=== PATIENT | female | born 1960 | race Caucasian/White ===

== ENCOUNTER 2017-09-14 08:38 | Inpatient (IN) | payer OTHER, SELFPAY ==
[~2017-09-14] VITALS: Ht 167.6 cm; Wt 111.9 kg
[2017-09-14] MEDS ORDERED: LISI-170 PO (09:11)
[2017-09-14] MEDS ORDERED: FLUO20CA8 PO (09:11)
[2017-09-14] MEDS ORDERED: METF500T4 PO (09:11)
[2017-09-14] MEDS ORDERED: CANA300T PO (09:11)
[2017-09-14] MEDS ORDERED: OMEP-110 PO (09:11)
[2017-09-14] MEDS ORDERED: ATOR40TA78 PO (09:11)
[2017-09-14] MEDS ORDERED: ASPI-515 PO (09:30)
[2017-09-14] MEDS ORDERED: MULT-257 PO (09:30)
[2017-09-14] MEDS ORDERED: DULA0.75 SQ (09:30)
[2017-09-14] MEDS ORDERED: CALC-112 PO (09:30)
[2017-09-14] MEDS ORDERED: SODIUM CHLORIDE FLUSH 10ML SYR IVF ONE (10:00)
[2017-09-14 10:09] LABS: BASOPHILS # (AUTO) 0.03 x10^3/uL (0-0.1); BASOPHILS % (AUTO) 0 % (0-1); EOSINOPHILS # (AUTO) 0.07 x10^3/uL (0-0.4); EOSINOPHILS % (AUTO) 1 % (1-7); LYMPHOCYTES # (AUTO) 1.57 x10^3/uL (1-3.4); LYMPHOCYTES % (AUTO) 17 % (22-44); MD NO; MEAN CORPUSCULAR HEMOGLOBIN 29.5 pg (27.0-34.8); MEAN CORPUSCULAR VOLUME 86.6 fL (80-100); MEAN PLATELET VOLUME 9.9 fL (7.4-10.4); MONOCYTES # (AUTO) 0.56 x10^3/uL (0.2-0.8); MONOCYTES % (AUTO) 6 % (2-9); NEUTROPHILS # (AUTO) 6.99 x10^3/uL (1.8-6.8); NEUTROPHILS % (AUTO) 76 % (42-75); PLATELET COUNT 230 x10^3/uL (130-400); RED BLOOD COUNT 5.48 x10^6/uL (3.82-5.3); RED CELL DISTRIBUTION WIDTH 13.5 % (9.6-15.2)
[2017-09-14 10:10] LABS: MICROSCOPIC NOT IND
[2017-09-14 10:17] LABS: ALANINE AMINOTRANSFERASE 41 U/L (12-78); ANION GAP 19 mmol/L (5-15); CHLORIDE 97 mmol/L (98-107); CREATININE 1.24 mg/dL (0.55-1.02)
[2017-09-14 10:18] LABS: CULTURE INDICATED? NO
[2017-09-14 10:21] LABS: ALKALINE PHOSPHATASE 75 U/L (45-117); BILIRUBIN,TOTAL 0.8 mg/dL (0.2-1.0); TOTAL PROTEIN 8.3 g/dL (6.4-8.2); TROPONIN I < 0.015 ng/mL (0.000-0.045)
[2017-09-14] MEDS ORDERED: HYDROCORTISONE 100 MG INJ. IV ONE (11:30)
[2017-09-14] MEDS ORDERED: SODIUM CHLORIDE 0.9% 1,000ML IVBOLUS ONE (11:30)
[2017-09-14 12:57] VITALS: BP 137/81
[2017-09-14] MEDS: SODIUM CHLORIDE 0.9% 1,000 ML IV SCH ×2 (13:29→22:33)
[2017-09-14] MEDS ORDERED: DOCUSATE 100 MG CAPSULE PO PRN (13:30)
[2017-09-14] MEDS ORDERED: ONDANSETRON 2MG/ML, 2ML IVPush PRN (13:30)
[2017-09-14] MEDS ORDERED: ACETAMINOPHEN 325 MG TABLET PO PRN (13:30)
[2017-09-14] MEDS ORDERED: BISACODYL 10 MG SUPP PR PRN (13:30)
[2017-09-14] MEDS ORDERED: ONDANSETRON ODT 4 MG PO PRN (13:30)
[2017-09-14] MEDS ORDERED: LABETALOL 5MG/ML, 20ML IVPush PRN (13:30)
[2017-09-14 13:32] VITALS: BP 110/72
[2017-09-14 14:07] LABS: HEMOGLOBIN A1C 11.9 % (4.2-6.3)
[2017-09-14] MEDS: HEPARIN 5,000 UNITS/ML, 1ML SQ SCH ×2 (16:22→22:33)
[2017-09-14] MEDS: INSULIN LISPRO 100 UNITS/ML, PEN SQ-INSULIN SCH ×2 (17:09→20:11)
[2017-09-14 19:54] VITALS: BP 118/74
[2017-09-14] MEDS: ATORVASTATIN 40 MG TABLET PO SCH (19:58)
[2017-09-14] MEDS: FLUOXETINE HCL 20 MG CAPSULE PO SCH (19:58)
[2017-09-15 02:44] VITALS: BP 117/75
[2017-09-15 05:22] LABS: BASOPHILS # (AUTO) 0.03 x10^3/uL (0-0.1); BASOPHILS % (AUTO) 1 % (0-1); EOSINOPHILS # (AUTO) 0.13 x10^3/uL (0-0.4); EOSINOPHILS % (AUTO) 2 % (1-7); LYMPHOCYTES % (AUTO) 35 % (22-44); MD NO; MEAN CORPUSCULAR HEMOGLOBIN 29.4 pg (27.0-34.8); MEAN CORPUSCULAR HGB CONC 34.1 g/dL (32.4-35.8); MEAN CORPUSCULAR VOLUME 86.3 fL (80-100); MEAN PLATELET VOLUME 9.3 fL (7.4-10.4); MONOCYTES # (AUTO) 0.52 x10^3/uL (0.2-0.8); MONOCYTES % (AUTO) 9 % (2-9); NEUTROPHILS # (AUTO) 3.01 x10^3/uL (1.8-6.8); NEUTROPHILS % (AUTO) 53 % (42-75); PLATELET COUNT 204 x10^3/uL (130-400); RED CELL DISTRIBUTION WIDTH 13.6 % (9.6-15.2)
[2017-09-15] MEDS: HEPARIN 5,000 UNITS/ML, 1ML SQ SCH ×3 (05:37→22:30)
[2017-09-15] MEDS: SODIUM CHLORIDE 0.9% 1,000 ML IV SCH ×2 (05:37→12:17)
[2017-09-15 05:39] LABS: ANION GAP 15 mmol/L (5-15); CALCIUM 8.1 mg/dL (8.5-10.1); CHLORIDE 105 mmol/L (98-107)
[2017-09-15 05:53] LABS: CREATININE 1.14 mg/dL (0.55-1.02); FREE T4 (FREE THYROXINE) 1.34 ng/dL (0.76-1.46)
[2017-09-15 07:46] VITALS: BP 120/75
[2017-09-15] MEDS: ASPIRIN 81 MG TABLET EC PO SCH (07:51)
[2017-09-15] MEDS: INSULIN LISPRO 100 UNITS/ML, PEN SQ-INSULIN SCH ×4 (07:51→20:36)
[2017-09-15] MEDS: LISINOPRIL 20 MG TABLET PO SCH (07:52)
[2017-09-15] MEDS: OMEPRAZOLE 20 MG CAPSULE.DR PO SCH (07:52)
[2017-09-15] MEDS: SENNA/DOCUSATE TABLET PO SCH (07:52)
[2017-09-15] MEDS: CALCIUM/VITAMIN D3 250-125 TABLET PO SCH (07:52)
[2017-09-15] MEDS: MULTIVITAMIN 1 TABLET PO SCH (07:52)
[2017-09-15 14:01] VITALS: BP 138/82
[2017-09-15] MEDS: ATORVASTATIN 40 MG TABLET PO SCH (20:36)
[2017-09-15] MEDS: FLUOXETINE HCL 20 MG CAPSULE PO SCH (20:36)
[2017-09-15 20:45] VITALS: BP 125/78
[2017-09-16 02:00] VITALS: BP_SYST 106; BP_SYST 121; BP_SYST 131; BP_DIAS 76; BP_DIAS 79
[2017-09-16] MEDS: HEPARIN 5,000 UNITS/ML, 1ML SQ SCH (06:13)
[2017-09-16 07:35] VITALS: BP 108/71
[2017-09-16 07:36] VITALS: BP 111/75
[2017-09-16 07:37] VITALS: BP 107/74
[2017-09-16] MEDS: INSULIN LISPRO 100 UNITS/ML, PEN SQ-INSULIN SCH ×2 (08:03→11:00)
[2017-09-16] MEDS: OMEPRAZOLE 20 MG CAPSULE.DR PO SCH (08:04)
[2017-09-16] MEDS: CALCIUM/VITAMIN D3 250-125 TABLET PO SCH (08:04)
[2017-09-16] MEDS: MULTIVITAMIN 1 TABLET PO SCH (08:04)
[2017-09-16] MEDS: ASPIRIN 81 MG TABLET EC PO SCH (08:04)
[2017-09-16] MEDS: SENNA/DOCUSATE TABLET PO SCH (08:06)
[2017-09-16 10:12] VITALS: BP 122/86
[2017-09-16] MEDS: LISINOPRIL 20 MG TABLET PO SCH (10:13)
[2017-09-16 12:05] VITALS: BP 13/73
[2017-09-16] MEDS ORDERED: SODIUM CHLORIDE 0.9% 1,000 ML IV SCH (13:29)
== END 2017-09-16 12:30 | disposition home or self-care (01) | DRG 638 ==
LOC: ED 10:33 → EDIP 11:22 → 4WST 13:06 → DCLOUNGE 09-16 12:15
PROVIDERS: ADMIT Family Medicine; ATTEND Family Medicine
DX: E11.65 Type 2 diabetes mellitus with hyperglycemia (principal); E87.1 Hypo-osmolality and hyponatremia; N17.9 Acute kidney failure, unspecified; E87.2 Acidosis; E66.01 Morbid (severe) obesity due to excess calories; E78.5 Hyperlipidemia, unspecified; E86.0 Dehydration; F17.200 Nicotine dependence, unspecified, uncomplicated; F32.9 Major depressive disorder, single episode, unspecified; I10 Essential (primary) hypertension; K21.9 Gastro-esophageal reflux disease without esophagitis; Z90.49 Acquired absence of other specified parts of digestive tract; Z79.899 Other long term (current) drug therapy; Z79.82 Long term (current) use of aspirin; Z79.4 Long term (current) use of insulin; Z82.49 Family history of ischemic heart disease and other diseases of the circulatory system; Z68.39 Body mass index [BMI] 39.0-39.9, adult
CPT/HCPCS: 36415; 80048; 80053; 81003; 82962; 83036; 83605; 83690; 84439; 84443; 84484; 85025; 87040; 93005; 93306; 99285; J1644; J7030